=== PATIENT | male | born 1985 | race African-American/Black ===

== ENCOUNTER 2016-11-09 12:35 | Emergency (ER) | payer OTHER ==
[~2016-11-09] VITALS: Ht 180.3 cm; Wt 75.0 kg
[~2016-11-09 12:35] MED LIST: BUPR150T11 PO; QUET50TA16 PO
[2016-11-09 12:36] VITALS: Ht 180.3 cm; Wt 75.0 kg
[2016-11-09] MEDS ORDERED: SOD CHLORIDE 0.9% 1,000 ML IV STA (12:48)
[2016-11-09] MEDS ORDERED: ONDANSETRON 4 MG INJ IV STA (12:48)
[2016-11-09] MEDS ORDERED: HYDROmorphONE 1 MG/ML SYG IV STA (12:48)
[2016-11-09 13:31] LABS: BASOPHILS % 0.5 % (0.0-2.0); EOSINOPHILS % 0.2 % (0.0-7.0); HEMOGLOBIN 13.1 g/dl (14.0-18.0); LYMPHOCYTES % 11.8 % (15.0-51.0); MEAN CORPUSCULAR HEMOGLOBIN 30.5 pg (29.0-33.0); MEAN CORPUSCULAR HGB CONC 33.6 g/dl (32.0-37.0); MEAN CORPUSCULAR VOLUME 90.7 fl (82.0-101.0); MEAN PLATELET VOLUME 10.5 fl (7.4-10.4); MONOCYTE # 0.5 10^3/ul (0.3-0.9); MONOCYTES % 5.9 % (0.0-11.0); NEUTROPHILS % 81.4 % (39.0-77.0); PLATELET COUNT 264 10^3/UL (140-415); RED CELL DISTRIBUTION WIDTH 12.1 % (11.5-14.5); WHITE BLOOD COUNT 8.6 10^3/ul (4.8-10.8)
[2016-11-09 13:48] LABS: ALANINE AMINOTRANSFERASE 47 IU/L (13-69); ALBUMIN 3.9 g/dl (3.3-4.9); ALBUMIN/GLOBULIN RATIO 1.56; ALKALINE PHOSPHATASE 69 IU/L (42-121); ANION GAP 17 (8-16); ASPARTATE AMINO TRANSFERASE 40 IU/L (15-46); BILIRUBIN,INDIRECT 0.3 mg/dl (0-1.1); BILIRUBIN,TOTAL 0.3 mg/dl (0.2-1.3); BLOOD UREA NITROGEN 15 mg/dl (7-20); CALCIUM 8.9 mg/dl (8.4-10.2); CARBON DIOXIDE 25 mmol/L (21-31); CHLORIDE 105 mmol/L (97-110); CREATININE 1.22 mg/dl (0.61-1.24); GLUCOSE 98 mg/dl (70-220); POTASSIUM 3.8 mmol/L (3.5-5.1); SODIUM 143 mmol/L (135-144); TOTAL PROTEIN 6.4 g/dl (6.1-8.1)
[2016-11-09] MEDS ORDERED: HYDR-902 PO (14:17)
[2016-11-09] MEDS ORDERED: ONDA4TAB14 PO (14:17)
--- NOTE | 2016-11-09 14:24 | ERD ---
ER Documentation Chief Complaint Date/Time DATE: 11/09/16 TIME: 14:20 Chief Complaint VOMITING, ABDOMINAL PAIN SINCE 1100 TODAY HPI Patient is a 31-year-old male with anxiety who presents with chest pain and abdominal pain. He has midepigastric abdominal pain which started at 11 AM. The pain is been constant. He had 2 episodes of vomiting as well as diarrhea. Upon review of old medical records this is the patient's third visit to the ER since 2012. He does not currently have a primary doctor. The pain is sharp in nature and constant. ROS All systems reviewed and are negative except as per history of present illness. Medications Home Meds Active Scripts Ondansetron (Ondansetron Odt) 4 Mg Tab.rapdis, 4 MG PO Q6H Y for NAUSEA AND/OR VOMITING, #10 TAB Prov:JESSICA BEAL MD 11/09/16 Hydrocodone/Acetaminophen ([place] 10-325 Tablet) 1 Each Tablet, 1 TAB PO Q6H Y for PAIN, #7 TAB Prov:JESSICA BEAL MD 11/09/16 Reported Medications Bupropion Hcl (Bupropion Hcl SR) 150 Mg Tablet.sa, 150 MG PO DAILY 02/05/13 Quetiapine Fumarate* (Seroquel*) 50 Mg Tablet, 200 MG PO HS 02/05/13 Allergies Allergies: Coded Allergies: No Known Allergy (Unverified , 11/09/16) PMhx/Soc History of Surgery: No Anesthesia Reaction: No Hx Neurological Disorder: No Hx Respiratory Disorders: No Hx Cardiac Disorders: Yes (htn) Hx Psychiatric Problems: Yes (bipolar, schizophrenia) Hx Miscellaneous Medical Probl: Yes (anxiety, dm) Hx Alcohol Use: No Hx Substance Use: Yes (marajuana) Hx Tobacco Use: No Smoking Status: Never smoker FmHx Family History: diabetes Physical Exam Vitals Vital Signs Date Time Temp Pulse Resp B/P Pulse Ox O2 Delivery O2 Flow Rate FiO2 11/09/16 12:36 98.2 76 20 136/85 99 Physical Exam Const: Moderate distress secondary to pain Head: Atraumatic Eyes: Normal Conjunctiva ENT: Normal External Ears, Nose and Mouth. Neck: Full range of motion..~ No meningismus. Resp: Clear to auscultation bilaterally Cardio: Regular rate and rhythm, no murmurs Abd: Diffuse tenderness to palpation with guarding Skin: No petechiae or rashes Back: No midline or flank tenderness Ext: No cyanosis, or edema Neur: Awake and alert Psych: Normal Mood and Affect Result Diagram: 11/09/16 1320 11/09/16 1320 Results 24 hrs Laboratory Tests Test 11/09/16 13:20 White Blood Count 8.610^3/ul Red Blood Count 4.3010^6/ul Hemoglobin 13.1g/dl Hematocrit 39.0% Mean Corpuscular Volume 90.7fl Mean Corpuscular Hemoglobin 30.5pg Mean Corpuscular Hemoglobin Concent 33.6g/dl Red Cell Distribution Width 12.1% Platelet Count 45577^3/UL Mean Platelet Volume 10.5fl Neutrophils % 81.4% Lymphocytes % 11.8% Monocytes % 5.9% Eosinophils % 0.2% Basophils % 0.5% Nucleated Red Blood Cells % 0.0/100WBC Neutrophils # (Manual) 710^3/ul Lymphocytes # 1.010^3/ul Monocytes # 0.510^3/ul Eosinophils # 0.010^3/ul Basophils # 0.010^3/ul Nucleated Red Blood Cells # 0.010^3/ul Sodium Level 143mmol/L Potassium Level 3.8mmol/L Chloride Level 105mmol/L Carbon Dioxide Level 25mmol/L Anion Gap 17 Blood Urea Nitrogen 15mg/dl Creatinine 1.22mg/dl Glucose Level 98mg/dl Calcium Level 8.9mg/dl Total Bilirubin 0.3mg/dl Direct Bilirubin 0.00mg/dl Indirect Bilirubin 0.3mg/dl Aspartate Amino Transf (AST/SGOT) 40IU/L Alanine Aminotransferase (ALT/SGPT) 47IU/L Alkaline Phosphatase 69IU/L Troponin I Pending Total Protein 6.4g/dl Albumin 3.9g/dl Globulin 2.50g/dl Albumin/Globulin Ratio 1.56 Lipase 168U/L Current Medications Medications (Trade) Dose Ordered Sig/Joe Route PRN Reason Start Time Stop Time Status Last Admin Dose Admin Sodium Chloride (NS) 1,000 ml @ 1,000 mls/hr Q1H STAT IV 11/09/16 12:48 11/09/16 13:47 DC 11/09/16 13:11 Hydromorphone HCl (Dilaudid) 1 mg ONCE STAT IV 11/09/16 12:48 11/09/16 12:50 DC 11/09/16 13:11 Ondansetron HCl (Zofran Inj) 4 mg ONCE STAT IV 11/09/16 12:48 11/09/16 12:50 DC 11/09/16 13:11 Procedures/MDM EKG read by me: Rate/Rhythm: Sinus bradycardia rate of 55 Intervals: Normal Impression: Sinus tachycardia without ischemia Smoking Cessation Therapy: Pt. was lectured for greater than 3 minutes on the health risks of continued smoking and the benefits of cessation. CT scan of the abdomen pelvis is pending at this time. Patient is a 31-year-old male with history of anxiety who presents with abdominal pain and chest pain. He also has vomiting and diarrhea. He had an appendectomy performed a few months ago. At this point I doubt appendicitis. I doubt cholecystitis, pancreatitis, or bowel obstruction. CT scan of the abdomen pelvis is pending at this time. The patient feels better after Dilaudid , Zofran, and fluids. If the CT scan is negative I believe that outpatient management would be appropriate but the patient will need close follow-up the local clinics within 24 hours as he does not currently have a primary doctor. He could return for any worsening symptoms. He will be given a prescription for [place] and Zofran. He will be signed out to the oncoming physician for final disposition. Departure Diagnosis: Primary Impression: Abdominal pain Abdominal location: generalized Qualified Code: R10.84 - Generalized abdominal pain Additional Impression: Vomiting Vomiting type: unspecified Vomiting Intractability: non-intractable Nausea presence: with nausea Qualified Code: R11.2 - Non-intractable vomiting with nausea, unspecified vomiting type Condition: Fair Patient Instructions: Abdominal Pain, Vomiting (6Y-Adult) Referrals: [facility] YOU HAVE RECEIVED A MEDICAL SCREENING EXAM AND THE RESULTS INDICATE THAT YOU DO NOT HAVE A CONDITION THAT REQUIRES URGENT TREATMENT IN THE EMERGENCY DEPARTMENT. FURTHER EVALUATION AND TREATMENT OF YOUR CONDITION CAN WAIT UNTIL YOU ARE SEEN IN YOUR DOCTORS OFFICE WITHIN THE NEXT 1-2 DAYS. IT IS YOUR RESPONSIBILITY TO MAKE AN APPOINTMENT FOR FOLOW-UP CARE. IF YOU HAVE A PRIMARY DOCTOR --you should call your primary doctor and schedule an appointment IF YOU DO NOT HAVE A PRIMARY DOCTOR YOU CAN CALL OUR PHYSICIAN REFERRAL HOTLINE AT IF YOU CAN NOT AFFORD TO SEE A PHYSICIAN YOU CAN CHOSE FROM THE FOLLOWING [facility] [address] [facility] [address] [facility] [facility] [address] [facility] [address] [facility] [address] [facility]. [facility] [address] Additional Instructions: FOLLOW UP WITH YOUR PRIMARY CARE PHYSICIAN TOMORROW.Return to this facility if you are not improving as expected. JESSICA BEAL MD Nov 09, 2016 14:24
--- NOTE | 2016-11-09 14:36 | RADRPT ---
PROCEDURE: CT Abdomen and Pelvis without contrast. CLINICAL INDICATION: Epigastric abdominal pain. TECHNIQUE: CT scan of the abdomen and pelvis without contrast was performed on a multidetector hig h-resolution CT scanner. The patient was scanned without intravenous contrast. Coronal and sagittal reformatted images were obtained from the axial source images. Images were reviewed on a high-resol [employer] PACS workstation. The total exam CTDI equals 7.08 mGy and the total exam DLP equals 388.79 mGy -cm. One or the following dose reduction techniques were used: -Automated exposure control. -Adjustment of the mA and/or KV according to patient's size. -Use of iterative reconstruction technique. COMPARISON: None. FINDINGS: Limitation: The overall sensitivity of the study is lower by the fact that oral and intravenous con trast was not utilized. Lung Bases: Unremarkable. GI:. Unremarkable. Liver: Unremarkable. Gallbladder: Unremarkable. Pancreas: Unremarkable. Spleen: Unremarkablel Adrenals: Unremarkable. Kidneys: There is no evidence of urolithiasis or obstructive uropathy. Bladder: Unremarkable. Pelvic Organs: Unremarkable. Skeleton: Normal for age. Other: N/A IMPRESSION: 1. Limited noncontrast study demonstrating a CT of the abdomen pelvis with oral and intravenous cont rast would be a more sensitive means of evaluation. 2. No evidence of urolithiasis or obstructive uropathy. 3. Mild scattered fecal residue. RPTAT: [facility] Physician Pino Date Time Electronically viewed and signed by Physician Pino on 11/09/2016 14:36 /
[2016-11-09 14:44] LABS: TROPONIN-I < 0.012 ng/ml (0.00-0.12)
[2016-11-09 15:10] LABS: ADD UMIC NO; UR ASCORBIC ACID NEGATIVE (NEGATIVE); UR BILIRUBIN (Dip) NEGATIVE (NEGATIVE); UR BLOOD (Dip) NEGATIVE (NEGATIVE); UR CLARITY CLEAR (CLEAR); UR COLOR YELLOW (YELLOW); UR GLUCOSE (Dip) NEGATIVE (NEGATIVE); UR KETONES (Dip) NEGATIVE (NEGATIVE); UR LEUKOCYTE ESTERASE (Dip) NEGATIVE Leu/ul (NEGATIVE); UR NITRITE (Dip) NEGATIVE (NEGATIVE); UR SPECIFIC GRAVITY (Dip) 1.021 (1.003-1.030); UR TOTAL PROTEIN (Dip) NEGATIVE (NEGATIVE); UR UROBILINOGEN (Dip) NEGATIVE (NEGATIVE)
--- NOTE | 2016-11-09 15:55 | EN ---
Date/Time of Note Date/Time of Note DATE: 11/09/16 TIME: 15:55 ER Progress Note I was following up this patient's CAT scan and troponin values for the previous physician. No signs of any serious acute abnormalities. Patient will be discharged according to plan. LEANDER SRINIVASAN DO Nov 09, 2016 15:55
[2016-11-09 15:58] VITALS: BP 102/51; PULSE 58; RESP 16
== END 2016-11-09 16:04 | disposition home or self-care (01) ==
LOC: E/R 12:35
DX: R10.84 Generalized abdominal pain (principal); R11.2 Nausea with vomiting, unspecified; I10 Essential (primary) hypertension; E11.9 Type 2 diabetes mellitus without complications
CPT/HCPCS: 36415; 74176; 80053; 81003; 83690; 84484; 85025; 96374; 96375; J1170; J2405; J7030; Z7502; 93005